=== PATIENT | male | born 1950 | race Caucasian/White ===

== ENCOUNTER 2019-11-10 15:39 | Observation (INO) ==
[2019-11-10 16:04] LABS: Basophils # 0.1 10*3/uL (0.0-0.2); Basophils % 0.7 % (0.0-0.8); Eosinophils # 0.2 10*3/uL (0.0-0.87); Eosinophils % 2.6 % (0.00-10.9); Hematocrit 37.8 VOL% (42.0-52.0); Hemoglobin 11.9 GM/DL (14.0-18.0); Immature Granulocytes % 0.4 %; Immature Granulocytes Absolute 0.03 #; Lymphocytes # 2.3 10*3/uL (1.4-4.0); Lymphocytes % 28.5 % (21.2-54.2); Mean Corpuscular HGB Conc 31.5 GM/DL (32-36); Mean Corpuscular Volume 91.1 FL (87-102); Mean Platelet Volume 9.9 FL (9.6-12.0); Monocytes % 10.7 % (1.7-12.7); Neutrophils % 57.1 % (38.7-73.9); Platelet Count 227 T/CUMM (130-400); Red Blood Count 4.15 MC/CUMM (3.8-5.5); Red Cell Distribution Width 14.1 % (9.3-17.3); White Blood Count 8.2 T/CUMM (4-12)
[2019-11-10] MEDS ORDERED: DILTIAZEM 50 MG/10 ML VIAL IV STA ×2 (16:12→16:46)
[2019-11-10 16:18] LABS: PT Patient Result 10.7 SECS (9.6-12.2); Partial Thromboplastin Time 28.9 SECS (20.8-36.0)
[2019-11-10 16:27] LABS: Alanine Aminotransferase 23 U/L (16-61); Albumin 3.1 G/DL (3.4-5.0); Alkaline Phosphatase 149 U/L (45-117); Aspartate Amino Transferase 14 U/L (0-37); Bilirubin,Total < 0.39 MG/DL (0.2-1.0); Blood Urea Nitrogen 21 MG/DL (7-18); Calcium 8.8 MG/DL (8.5-10.1); Estimated Glom Filtration Rate 65 ML/MIN; Glucose 175 MG/DL (74-106); Osmolality,Calculated 281.7 MOS/KG (273-304); Total Protein 6.7 G/DL (6.4-8.3)
[2019-11-10] MEDS ORDERED: DILTIAZEM CD 120 MG CAPSULE PO STA (16:46)
[2019-11-10] MEDS ORDERED: ONDANSETRON 4 MG/2 ML VIAL IV PRN (16:47)
[2019-11-10] MEDS ORDERED: GLUCAGON 1 MG VIAL IM PRN (16:47)
[2019-11-10] MEDS ORDERED: DEXTROSE 10% 250 ML BAG IV PRN (16:47)
[2019-11-10] MEDS ORDERED: ENOXAPARIN 120 MG/0.8 ML SYRINGE SUBCUT STA (16:50)
[2019-11-10 18:35] LABS: Troponin I < 0.015 NG/ML (0.00-0.045)
[2019-11-10] MEDS: INSULIN LISPRO 100 UNIT/ML SUBCUT SCH (22:05)
[2019-11-10] MEDS: METOPROLOL TARTRATE 25 MG TABLET PO SCH (22:05)
[2019-11-10] MEDS: APIXABAN 5 MG TABLET PO SCH (22:05)
[2019-11-10 23:58] LABS: Troponin I < 0.015 NG/ML (0.00-0.045)
[2019-11-11 06:12] LABS: Basophils % 0.5 % (0.0-0.8); Eosinophils # 0.2 10*3/uL (0.0-0.87); Eosinophils % 2.3 % (0.00-10.9); Hematocrit 35.1 VOL% (42.0-52.0); Hemoglobin 10.9 GM/DL (14.0-18.0); Immature Granulocytes % 0.4 %; Immature Granulocytes Absolute 0.03 #; Lymphocytes # 1.9 10*3/uL (1.4-4.0); Lymphocytes % 24.5 % (21.2-54.2); Mean Corpuscular HGB Conc 31.1 GM/DL (32-36); Mean Corpuscular Volume 91.6 FL (87-102); Mean Platelet Volume 10.3 FL (9.6-12.0); Neutrophils % 61.3 % (38.7-73.9); Platelet Count 214 T/CUMM (130-400); Red Blood Count 3.83 MC/CUMM (3.8-5.5); Red Cell Distribution Width 14.2 % (9.3-17.3); White Blood Count 7.9 T/CUMM (4-12)
[2019-11-11 06:38] LABS: Troponin I < 0.015 NG/ML (0.00-0.045)
[2019-11-11 06:43] LABS: Calcium 8.6 MG/DL (8.5-10.1); Osmolality,Calculated 283.7 MOS/KG (273-304); Risk Ratio 5.6; Thyroid Stimulating Hormone 2.38 uIU/ml (0.358-3.74); VLDL CHOLESTEROL 32.8 MG/DL
[2019-11-11] MEDS: PANTOPRAZOLE 40 MG TABLET PO SCH ×2 (07:48→08:23)
[2019-11-11] MEDS: DILTIAZEM 60 MG TABLET PO SCH ×3 (08:22→17:15)
[2019-11-11] MEDS: INSULIN LISPRO 100 UNIT/ML SUBCUT SCH ×3 (08:23→16:28)
[2019-11-11] MEDS: APIXABAN 5 MG TABLET PO SCH ×2 (08:23→22:40)
[2019-11-11] MEDS: METOPROLOL TARTRATE 25 MG TABLET PO SCH ×2 (08:23→22:40)
[2019-11-11] MEDS ORDERED: FUROSEMIDE 40 MG/4 ML VIAL IV ONE (12:33)
[2019-11-11] MEDS ORDERED: lisinopriL 5 MG TABLET PO ONE (12:33)
[2019-11-11] MEDS ORDERED: ATORVASTATIN 40 MG TABLET PO SCH (21:00)
[2019-11-12] MEDS: INSULIN LISPRO 100 UNIT/ML SUBCUT SCH ×3 (00:27→12:07)
[2019-11-12] MEDS: DILTIAZEM 60 MG TABLET PO SCH ×2 (00:28→06:31)
[2019-11-12] MEDS ORDERED: FUROSEMIDE 40 MG/4 ML VIAL IV SCH (09:00)
[2019-11-12] MEDS ORDERED: lisinopriL 5 MG TABLET PO SCH (09:00)
[2019-11-12] MEDS ORDERED: DILTIAZEM CD 240 MG CAPSULE PO SCH (09:54)
[2019-11-12] MEDS: APIXABAN 5 MG TABLET PO SCH (10:17)
[2019-11-12] MEDS: METOPROLOL TARTRATE 25 MG TABLET PO SCH (10:17)
[2019-11-12] MEDS: PANTOPRAZOLE 40 MG TABLET PO SCH (10:17)
[2019-11-12 11:12] LABS: Basophils % 0.6 % (0.0-0.8); Eosinophils # 0.1 10*3/uL (0.0-0.87); Eosinophils % 1.7 % (0.00-10.9); Hematocrit 35.7 VOL% (42.0-52.0); Hemoglobin 11.5 GM/DL (14.0-18.0); Immature Granulocytes % 0.6 %; Immature Granulocytes Absolute 0.04 #; Lymphocytes # 1.3 10*3/uL (1.4-4.0); Mean Corpuscular HGB Conc 32.2 GM/DL (32-36); Mean Corpuscular Volume 90.2 FL (87-102); Mean Platelet Volume 10.1 FL (9.6-12.0); Monocytes % 8.6 % (1.7-12.7); Neutrophils % 69.5 % (38.7-73.9); Platelet Count 209 T/CUMM (130-400); Red Blood Count 3.96 MC/CUMM (3.8-5.5); Red Cell Distribution Width 14.2 % (9.3-17.3); White Blood Count 6.6 T/CUMM (4-12)
[2019-11-12 11:28] LABS: Osmolality,Calculated 283.2 MOS/KG (273-304)
[2019-11-12 12:44] VITALS: BP 160/89
== END 2019-11-12 16:00 | disposition home or self-care (01) ==
LOC: N.EDINP 15:39 → N.ED 15:39 → N.TELES 20:06
PROVIDERS: ADMIT Family Medicine; ATTEND Family Medicine

== ENCOUNTER 2021-11-05 09:28 | Inpatient (IN) ==
[2021-11-05] MEDS ORDERED: SODIUM CHLORIDE 0.9% 1,000 ML IV STA (11:43)
[2021-11-05 12:39] LABS: INR 1.2; PT Patient Result 13.7 SECS (10.5-12.0); Partial Thromboplastin Time 35.6 SECS (23.8-32.1)
[2021-11-05 12:44] LABS: Calcium 9.2 MG/DL (8.5-10.1); Osmolality,Calculated 274.7 MOS/KG (273-304); Potassium 4.8 MMOL/L (3.5-5.1)
[2021-11-05 12:50] LABS: Basophils # 0.1 10*3/uL (0.0-0.2); Basophils % 0.4 % (0.0-0.8); Eosinophils % 0.3 % (0.00-10.9); Hematocrit 33.1 VOL% (42.0-52.0); Hemoglobin 9.7 GM/DL (14.0-18.0); Immature Granulocytes Absolute 0.11 #; Lymphocytes # 1.3 10*3/uL (1.4-4.0); Lymphocytes % 11.8 % (21.2-54.2); Mean Corpuscular HGB Conc 29.3 GM/DL (32-36); Mean Corpuscular Volume 83.2 FL (87-102); Mean Platelet Volume 9.6 FL (9.6-12.0); Monocytes % 9.2 % (1.7-12.7); Neutrophils % 77.3 % (38.7-73.9); Platelet Count 411 T/CUMM (130-400); Red Blood Count 3.98 MC/CUMM (3.8-5.5); Red Cell Distribution Width 18.8 % (9.3-17.3); White Blood Count 11.3 T/CUMM (4-12)
[2021-11-05] MEDS ORDERED: MAGNESIUM CITRATE 300 ML BOTTLE PO STA (13:00)
[2021-11-05 13:59] LABS: Mucus,Urine Occasional /LPF (Occasional); RBC,Urine 11 /HPF (0-4); Squamous Epithelial Cell,Urine Occasional /HPF (0-10)
[2021-11-05 14:00] LABS: Nitrite,Urine Negative (Negative); Urine Appearance Cloudy (Clear); Urine Color Yellow (Yellow)
[2021-11-05 14:01] LABS: Protein,Urine 100 MG/DL; Urine Urobilinogen < 2.0 EU/DL (<2.0); Urine pH 6.5 (4.5-8.0)
[2021-11-05 14:02] LABS: Blood, Urine Large mg/dL (Negative); Urine Specific Gravity 1.015 (1.001-1.035)
[2021-11-05 14:03] LABS: Bilirubin,Urine Small mg/dL (Negative); Glucose,Urine (UA) Negative (Negative); Ketones,Urine 5 mg/dL (Negative)
[2021-11-05] MEDS ORDERED: SODIUM CHLORIDE 0.9% 1,000 ML IV SCH (20:20)
[2021-11-05] MEDS ORDERED: ONDANSETRON 4 MG/2 ML VIAL IV PRN (20:20)
[2021-11-05] MEDS ORDERED: ACETAMINOPHEN 325 MG TABLET PO PRN (20:20)
[2021-11-05] MEDS ORDERED: ATORVASTATIN 40 MG TABLET PO SCH (21:00)
[2021-11-05] MEDS ORDERED: cefTRIAXone 1,000 MG in SODIUM CHLORIDE 0.9% 100 ML IV SCH (21:00)
[2021-11-05] MEDS: APIXABAN 5 MG TABLET PO SCH (23:01)
[2021-11-05] MEDS: DOCUSATE SODIUM 100 MG CAPSULE PO SCH (23:01)
[2021-11-06 00:27] LABS: Calcium 9.1 MG/DL (8.5-10.1); Osmolality,Calculated 279.5 MOS/KG (273-304); Potassium 4.8 MMOL/L (3.5-5.1)
[2021-11-06 05:23] LABS: Calcium 8.9 MG/DL (8.5-10.1); Osmolality,Calculated 280.2 MOS/KG (273-304)
[2021-11-06] MEDS ORDERED: traMADol 50 MG TABLET PO PRN (08:28)
[2021-11-06] MEDS ORDERED: METOPROLOL TARTRATE 25 MG TABLET PO SCH (09:00)
[2021-11-06] MEDS ORDERED: DILTIAZEM CD 180 MG CAPSULE PO SCH ×2 (09:00)
[2021-11-06] MEDS ORDERED: metFORMIN 500 MG TABLET PO SCH (09:00)
[2021-11-06] MEDS ORDERED: PANTOPRAZOLE 40 MG TABLET PO SCH (09:00)
[2021-11-06] MEDS: DOCUSATE SODIUM 100 MG CAPSULE PO SCH (09:27)
[2021-11-06] MEDS: APIXABAN 5 MG TABLET PO SCH (09:27)
[2021-11-06 11:55] VITALS: BP 122/54
== END 2021-11-06 12:08 | disposition left against medical advice (07) | DRG 389 ==
LOC: N.ED 09:28 → N.TELEN 16:12
PROVIDERS: ADMIT Family Medicine; ATTEND Family Medicine